=== PATIENT | male | born 1945 | race Caucasian/White ===

== ENCOUNTER 2022-11-10 14:06 | Emergency (ER) | payer MEDICARE ==
[~2022-11-10] VITALS: Ht 167.6 cm; Wt 90.7 kg
[2022-11-10] MEDS ORDERED: BACI30OI10 TP (15:20)
[2022-11-10 15:32] VITALS: BP 123/66
[2022-11-10] MEDS ORDERED: TETANUS/DIPHTHERIA TOXOID [ADULT] 0.5 ML VIAL IM ONE ×2 (15:41→16:00)
[2022-11-10] MEDS ORDERED: CEFTRIAXONE 1G VIAL IM ONE (16:00)
== END 2022-11-10 15:58 | disposition home or self-care (01) ==
LOC: EDH 14:11
DX: S51.812A Laceration without foreign body of left forearm, initial encounter (principal); Z88.0 Allergy status to penicillin; W26.8XXA Contact with other sharp object(s), not elsewhere classified, initial encounter; Y93.89 Activity, other specified; Y92.89 Other specified places as the place of occurrence of the external cause; Y99.8 Other external cause status
CPT/HCPCS: 99284; 90714; 73090; 96372; 90471; 12032; J0696

== ENCOUNTER 2022-11-17 09:21 | Emergency (ER) | payer MEDICARE ==
[~2022-11-17] VITALS: Ht 167.6 cm; Wt 90.7 kg
[~2022-11-17 09:21] MED LIST: BACI30OI10 TP
[2022-11-17 10:27] VITALS: BP 112/76
== END 2022-11-17 10:28 | disposition home or self-care (01) ==
LOC: EDH 09:21
DX: S51.812D Laceration without foreign body of left forearm, subsequent encounter (principal); I10 Essential (primary) hypertension; F32.A Depression, unspecified; Z48.02 Encounter for removal of sutures; Z88.0 Allergy status to penicillin; Z85.46 Personal history of malignant neoplasm of prostate; X58.XXXA Exposure to other specified factors, initial encounter
CPT/HCPCS: 99281